=== PATIENT | male | born 1960 | race Caucasian/White ===

== ENCOUNTER 2018-10-04 07:42 | Outpatient (CLI) | payer OTHER ==
--- NOTE | 2018-10-04 08:27 | ULT ---
US Gallbladder RUQ History: Abnormal pain Comparison: None. Findings: Real-time grayscale and color evaluation of the right upper quadrant of the abdomen was per formed. Hepatic echotexture is normal. Visualized portion of the aorta IVC and pancreas are unremarkable. There is cholelithiasis. No gallbladder wall thickening. Right kidney measures 9.5 x 6.8 x 4.8 cm without mass, hydronephrosis, or abnormal calcifications. Co mmon bile duct is normal measuring 3 mm. Impression: Cholelithiasis without cholecystitis.
== END 2018-10-04 07:43 | disposition home or self-care (01) ==
LOC: MADULT 07:42
DX: Z01.89 Encounter for other specified special examinations (principal); K80.20 Calculus of gallbladder without cholecystitis without obstruction
CPT/HCPCS: 76705

== ENCOUNTER 2019-05-29 09:51 | Outpatient (CLI) | payer OTHER ==
--- NOTE | 2019-05-29 10:49 | ULT ---
EXAM: US Gallbladder RUQ CLINICAL HISTORY: Cirrhosis. Hepatitis C.. COMPARISON: 10/04/2018 FINDINGS: Pancreas: Obscured by bowel gas Liver:Increased echogenicity which may be due to hepatic steatosis or hepatocellular disease. Limited evaluation for hepatic masses and intrahepatic biliary dilatation.. Gallbladder: Gallbladder wall is 0.3 cm. No pericholecystic fluid. Numerous gallstones are identified . Mistry's sign:Negative Portal Vein: Poorly visualized Bile ducts: Poorly visualized common bile duct Right kidney: No hydronephrosis. Right kidney measures 10.3 cm in length. IMPRESSION: 1. Evidence of cholelithiasis without sonographic evidence of a cyst. 2. Increased echogenicity CT of the liver which may be due to hepatic steatosis or hepatocellular dis ease. If there is concern for hepatic masses, consider liver mass protocol CT
== END 2019-05-29 09:52 | disposition home or self-care (01) ==
LOC: MADCT 09:51
PROVIDERS: ATTEND Family Medicine
DX: K74.60 Unspecified cirrhosis of liver (principal); K80.20 Calculus of gallbladder without cholecystitis without obstruction; R93.2 Abnormal findings on diagnostic imaging of liver and biliary tract
CPT/HCPCS: 76705

== ENCOUNTER 2019-06-21 08:22 | Emergency (ER) | payer OTHER | END 2019-06-21 09:38 | disposition home or self-care (01) | LOC: MADERS 08:22 | DX: T16.1XXA Foreign body in right ear, initial encounter (principal); F17.210 Nicotine dependence, cigarettes, uncomplicated | CPT/HCPCS: 69200 ==

== ENCOUNTER 2020-06-03 07:35 | Outpatient (CLI) | payer OTHER ==
--- NOTE | 2020-06-03 08:22 | ULT ---
EXAM: Right upper quadrant ultrasound PROVIDED CLINICAL HISTORY: Hepatitis C COMPARISON: 05/29/2019 FINDINGS: Visualized portions of the pancreas and IVC appear normal. Liver demonstrates no mass or intrahepatic biliary ductal dilatation. Common duct is nondilated. Gallbladder demonstrates gallstones without wall thickening or pericholecy stic fluid. Right kidney demonstrates no hydronephrosis or mass. IMPRESSION: Cholelithiasis.
== END 2020-06-03 07:36 | disposition home or self-care (01) ==
LOC: MADRAD 07:35
PROVIDERS: ATTEND Family Medicine
DX: Z12.89 Encounter for screening for malignant neoplasm of other sites (principal); K80.20 Calculus of gallbladder without cholecystitis without obstruction
CPT/HCPCS: 76705

== ENCOUNTER 2021-02-25 09:25 | Outpatient (CLI) | payer OTHER | END 2021-02-25 09:26 | disposition home or self-care (01) | LOC: MADULT 09:25 | PROVIDERS: ATTEND Family Medicine | DX: Z12.89 Encounter for screening for malignant neoplasm of other sites (principal); B19.20 Unspecified viral hepatitis C without hepatic coma; K80.20 Calculus of gallbladder without cholecystitis without obstruction; R93.2 Abnormal findings on diagnostic imaging of liver and biliary tract | CPT/HCPCS: 76705 ==

== ENCOUNTER 2023-03-20 09:40 | Emergency (ER) | payer OTHER ==
[2023-03-20 10:26] LABS: #Basophils 0.1 thou/uL (0.0-0.2); #Eosinphils 0.1 thou/uL (0.0-0.7); #Lymphocytes 1.2 thou/uL (1.20-3.40); #Monocytes 0.5 thou/uL (0.11-0.59); #Neutrophils 6.9 thou/uL (1.40-6.50); %Basophils 0.7 % (0.0-1.0); %Eosinophils 0.8 % (0.0-10.0); %Lymphocytes 13.4 % (21.0-51.0); %Monocytes 6.1 % (0.0-10.0); %Neutrophils 79.1 % (42.0-75.0); Hematocrit 49.3 % (42.0-52.0); Mean Corpuscular HGB CONC 34.4 g/dL (32.0-36.0); Mean Corpuscular Hemoglobin 33.7 pg (27.0-31.0); Mean Corpuscular Volume 97.9 fl (78.0-98.0); Mean Platelet Volume 8.2 fL (7.4-10.4); Platelet Count 160 10x3/uL (130-400); RBC Distribution Width 11.4 % (11.5-14.5); Red Blood Cell (RBC) Count 5.04 mill/uL (4.70-6.10); White Blood Cell (WBC) Count 8.7 10x3/uL (4.8-10.8)
[2023-03-20 10:40] LABS: ALT (SGPT) 12 U/L (8-55); AST (SGOT) 28 U/L (5-34); Albumin 4.1 g/dL (3.4-4.8); Alkaline Phosphatase 49 U/L (40-110); Anion Gap 17 mmol/L (10-20); BUN (Urea Nitrogen) 4 mg/dL (8.4-25.7); Bilirubin, Total 1.1 mg/dL (0.2-1.2); CK (CPK) 367 U/L (30-200); Calc. Creatinine Clearance 0 mL/min (70-130); Calcium 9.1 mg/dL (7.8-10.44); Carbon Dioxide 22 mmol/L (23-31); Chloride 96 mmol/L (98-107); Estimated GFR 106; Globulin 4.2 g/dL (2.4-3.5); Glucose 147 mg/dL (80-115); Potassium 3.8 mmol/L (3.5-5.1); Protein, Total 8.3 g/dL (5.8-8.1); Sodium 131 mmol/L (136-145)
[2023-03-20 10:41] LABS: Acetaminophen Less than 10 mcg/mL (10.0-30.0); Alcohol 84.6 mg/dL (Less than 10); Magnesium 1.5 mg/dL (1.6-2.6); Salicylate Less than 8.0 mg/dL (15.0-30.0)
[2023-03-20] MEDS ORDERED: Sodium Chloride 0.9% 1,000 ML ONE (10:47)
[2023-03-20] MEDS ORDERED: Ondansetron PF 4 MG/2 ML Vial ONE (10:47)
[2023-03-20] MEDS ORDERED: Morphine 4 MG/ML VIAL ONE (10:47)
[2023-03-20] MEDS ORDERED: Magnesium Oxide 400 MG TAB ONE (13:24)
== END 2023-03-20 13:38 | disposition home or self-care (01) ==
LOC: MADERS 09:40
DX: S42.291A Other displaced fracture of upper end of right humerus, initial encounter for closed fracture (principal); S00.91XA Abrasion of unspecified part of head, initial encounter; E83.42 Hypomagnesemia; I10 Essential (primary) hypertension; F17.210 Nicotine dependence, cigarettes, uncomplicated; W18.30XA Fall on same level, unspecified, initial encounter
CPT/HCPCS: 23650; 70450; 72125; 80053; 80307; 82550; 83735; 83880; 85025; 96361; 96374; 96375; J2270; J2405; J7050